=== PATIENT | female | born 1975 | race Caucasian/White ===

== ENCOUNTER 2017-10-29 10:58 | Emergency (ER) | payer OTHER, SELFPAY ==
[2017-10-29 10:59] VITALS: BP 154/69; PULSE 84; RESP 16; TEMP 36.3; O2SAT 98; BMI 25.0
--- NOTE | 2017-10-29 11:13 | ED.VISSUMM ---
- ER Visit Summary Date of Service: 10/29/17 Chief Complaint: Allergic reaction History of Present Illness: The patient is a 42 F presents to the emergency department multiple symptoms. Patient states that Sunday, she was walking out of a grocery store. She states they just recently sprayed pesticides. She states that her strong chlorine or odor. She states that since that time, she has had some shortness of breath, nausea, and cough. She states that he was in the area around her apartment and a lot of the trees lost her leaves. Over the past 2 days, she began have some abdominal cramping. She admits to some dysuria today. The patient has no history of prior anaphylaxis. She denies any history of lung disease. She denies any other chronic medical conditions and takes no daily medications. Physical Examination: Vital signs reviewed General: Well-nourished, well-developed Head: Normocephalic, atraumatic Eyes: Pupils equal and reactive, extraocular muscles intact Neck, supple, no lymphadenopathy Heart: Regular rate and rhythm Respiratory: No distress, clear bilaterally Abdomen: Soft, nontender, nondistended, no peritoneal signs Back: Nontender Extremities: Nontender, no edema, no cords Skin: Normal color no rash Neuro: Alert and oriented, no focal or lateralizing deficits Test Results: [] Emergency Department Course and Treatment: Clinically, I do for the patient symptoms are likely secondary to chemical exposure and. She had cough, shortness of breath, nausea. This has improved. She has begun to have some facial flushing. IV was established. Patient was given fluids and Solu-Medrol. Her labs are relatively unremarkable. She does have a mild leukopenia with an eosinophil predominance. I do feel this is likely because of allergic response. She is not hypoxic. She is not tachypneic. I do feel that a prednisone burst would be the best way to treat this. The patient was counseled on concerning symptoms and reasons to return. She will be discharged home. Treatment Plan: [] Disposition: Discharge Impression: 1. Chemical inhalation with bronchospasm-resolved This note was generated with [employer] software. It may contain incorrect words, spelling, and punctuation that were not noted in review of the chart prior to signing ED Disposition - Plan for ED Patient: Chief Complaint: General Illness Instructions: ED Inhalation Chemical Prescriptions: Prednisone 10 mg PO UD #33 tab Referrals: [facility] Doctor,Out of [NON-STAFF] -
[2017-10-29 11:37] LABS: Bacteria 0 SEEN /hpf (None Seen); Mucous, Urine 0 SEEN /hpf (<or=2+); Red Blood Cells-Urine 0 SEEN /hpf (0-5); White Blood Cells 0 SEEN /hpf (0-5)
[2017-10-29 11:41] LABS: Absolute Lymphocyte Count 1.28 X10^3/ul (0.83-4.51); Absolute Neutrophil Count 1.9 X10^3/uL (2.0-7.7); Basophil# 0.06 X10^3/uL; Basophil% 1.6 % (0-1); Eosinophils% 5.2 % (0-5); Hematocrit 38.6 % (37-47); Hemoglobin 13.2 g/dl (12.0-15.0); Lymphocyte # 1.28 X10^3/ul (4.0); Lymphocyte % 33.2 % (19-41); Mean Corp Hgb Conc 34.2 g/gl (32-36); Mean Corpuscular Hgb 30.8 pg (27.0-32.0); Mean Corpuscular Volume 90.2 fL (81-99); Mean Platelet Vol. 9.2 fl (6.2-12.0); Monocyte# 0.39 X10^3/uL; Monocyte% 10.1 % (0-10); Neutrophil # 1.92 X10^3/uL (2.7-7.7); Neutrophil % 49.9 % (47-70); POSITIVE COUNT NO; POSITIVE DIFFERENTIAL NO; POSITIVE MORPHOLOGY NO; Platelet Count 334 K/mm3 (150-450); RBC Distribution Width CV 11.5 % (11.6-14.6); RBC Distribution Width SD 36.7 fl (35.1-43.9); Red Blood Count 4.28 M/mm3 (4.2-5.4); White Blood Count 3.9 K/mm3 (4.4-11.0)
[2017-10-29 11:41] LABS: Color, Urine Yellow (Yellow); Glucose, Dipstick Normal (Normal); Ketone-Dipstick Negative (Negative); Leukocyte Esterase-Dipstick Negative /ul (Negative); Nitrite-Dipstick Negative (Negative); Occult Blood-Urine Negative /ul (Negative); Protein-Dipstick Negative (Negative); Urine Bilirubin Dipstick Negative (Negative); Urine Clarity Clear (Clear); Urine Urobilinogen Normal (Normal)
[2017-10-29] MEDS: 0.9% Normal Saline 1,000 ML 1000 ML IV (11:45)
[2017-10-29 11:48] LABS: Squamous Epithelial Cells - UA 0-5 SEEN /hpf (5-10)
[2017-10-29 11:52] LABS: AST(SGOT) 12 U/L (15-37); Alanine Aminotransfer ALT/SGPT 17 U/L (13-56); Albumin, Serum 3.9 g/dL (3.2-5.0); Alkaline Phosphatase 54 U/L (45-117); Anion Gap 7 (5-15); BUN 4 mg/dL (7-18); BUN/Creat Ratio 4.9 RATIO (10-20); Calcium,Total 9.2 mg/dL (8.5-10.1); Chloride 108 mmol/L (98-107); Creatinine, Serum 0.82 mg/dL (0.55-1.02); EST Glomerular Filtration Rate 82 mL/min (>60); Est Glom Filt Rate - Afr Amer 99 mL/min (>60); Estimated Creatinine Clearance 85.37 ml/min; Globulin 4.1 g/dL (2.2-4.2); Glucose 98 mg/dL (74-106); Potassium 3.8 mmol/L (3.5-5.1); Sodium Level 141 mmol/L (136-145)
[2017-10-29] MEDS: MethylPREDNISolone 125 MG/2 ML Vial IV (12:37)
== END 2017-10-29 13:21 | disposition home or self-care (01) ==
LOC: ED 11:49
PROVIDERS: Emergency Provider Emergency Medicine
DX: T60.8X1A Toxic effect of other pesticides, accidental (unintentional), initial encounter (principal); J68.0 Bronchitis and pneumonitis due to chemicals, gases, fumes and vapors; Y92.512 Supermarket, store or market as the place of occurrence of the external cause
CPT/HCPCS: 80053; 81001; 85025; 99284; J7030; A4216

== ENCOUNTER 2019-01-13 00:23 | Emergency (ER) | payer MEDICAID, SELFPAY ==
[2019-01-13 00:31] VITALS: BP 120/80; PULSE 94; RESP 14; TEMP 36.8; O2SAT 100; BMI 26.4
--- NOTE | 2019-01-13 00:32 | EKG12_ITS ---
Test Reason : DIZZYNESS Blood Pressure : / mmHG Vent. Rate : 083 BPM Atrial Rate : 083 BPM P-R Int : 148 ms QRS Dur : 098 ms QT Int : 388 ms P-R-T Axes : 075 078 051 degrees QTc Int : 455 ms Normal sinus rhythm Nonspecific ST abnormality Abnormal ECG Confirmed by VIOLETA BAILEY, RADHA ([id number]), assistant film editor AUREA BAUTISTA ([id number]) on 01/13/2019 3:01:34 PM Referred By: ELIECER Confirmed By:RADHA MCDANIEL MD
--- NOTE | 2019-01-13 00:41 | ED.DCSUM_ITS ---
History of Present Illness Chief Complaint: Dizziness Informant: Patient Narrative: Patient stated she woke up with vertigo just prior to arrival. She was sleeping and woke up try to go the bathroom and felt significant vertigo when she looks to the left. She felt nauseous. She did not vomit. She had to call the paramedics to bring her in for further evaluation. It is come down significantly per patient. She is never been diagnosed with vertigo in the past however she has had vertigo episodes in the past that lasts for short period of time. She is never needed treatment. She denies any history of intracranial pathology. She is not having frequent headaches. She felt fine before bedtime tonight. Current severity is mild. It was moderate to severe. She does not feel lightheaded like she is going to pass out. Past Medical History - Allergies and Home Meds Allergies/Adverse Reactions: Allergies -cillins Allergy (Uncoded 10/29/17 12:36) Rash all -cillins, have a bad reaction to them all Primary Care Physician: [facility] [Primary Care Provider] - Prior records reviewed: Yes Past Medical History: None Surgical History: - - Reviewed Lives: With Family Smoking Status: Unknown if ever smoked Alcohol: None Drugs: None Review of Systems General: Denies: Chills, Fever, Sweats Eyes: Denies: Visual changes - bilaterally, Diplopia ENT: Denies: Rhinorrhea, Sore throat Cardiovascular: Denies: Chest pain, Palpitations Respiratory: Denies: Dyspnea, Cough, Dyspnea on exertion Gastrointestinal: Reports: Nausea. Denies: Abdominal pain, Vomiting, Diarrhea, Melena, Hematochezia Genitourinary: Denies: Dysuria, Hematuria, Frequency Musculoskeletal: Denies: Back pain, Extremity Pain Skin: Denies: Rash, Wounds Neurological: Reports: - - See HPI. Denies: Headache, Weakness, Numbness Physical Exam Vital Signs/Narrative: Vital Signs Temp Pulse Resp BP Pulse Ox 01/13/19 00:31 98.2 F 94 14 120/80 100 General: Well nourished, Well developed, No Acute Distress Head: Normocephalic, Atraumatic Eyes: Perrl, EOMI, - - Positive lateral nystagmus bilateral to the left ENT: Moist mucous membranes, No rhinorrhea Neck: Supple, Nontender Cardiovascular: Regular rate, Regular rhythm, No murmurs Respiratory: No distress, CTA bilaterally, Chest nontender Abdomen: Soft, Nontender, Nondistended, Normal bowel sounds Back: Nontender, Normal Inspection Extremities: Nontender, No edema Skin: Normal color, No rash Neurological: Alert, Oriented x3, Cranial nerves II-XII grossly intact, Normal Strength, Normal Sensation, - - Patient has reproduction of her vertigo while moving her head to the left Psychological: Normal affect, Normal Mood Diagnostic/Tx/Re-eval - Medical Decision Making Been oral meclizine and Zofran. Upon reevaluation she feels significantly better. Vertigo is resolved. EKG was obtained upon arrival shows normal sinus rhythm with nonspecific abnormality. No acute ischemia or STEMI. At this time I feel the patient has positional benign vertigo. Will be given meclizine and Zofran for home. She felt better and ambulates to the bathroom without problem. I do not feel she needs imaging including CT head. We will follow-up as an outpatient. I do not feel she has a central cause. Given information on the Heather maneuver. ED Disposition - Plan for ED Patient: Disposition: Home or Assisted Living Diagnosis: Positional vertigo Instructions: Benign Positional Vertigo Prescriptions: Meclizine HCl [Antivert] 25 - 50 mg PO TID PRN PRN #20 tab PRN Reason: Vertigo Prescription Printed Ondansetron [Zofran Odt] 4 mg PO Q8H PRN PRN #10 tab PRN Reason: Nausea Prescription Printed [facility]errals: [facility] [Primary Care Provider] -
[2019-01-13] MEDS: Meclizine HCl 25 MG Tablet PO (00:43)
[2019-01-13 00:45] VITALS: BP 124/76; PULSE 82; RESP 16
[2019-01-13] MEDS: Ondansetron ODT 4 MG Tablet 8 MG PO ×2 (01:49→03:53)
[2019-01-13 02:08] LABS: Absolute Neutrophil Count 4.4 X10^3/uL (2.0-7.7); Basophil# 0.04 X10^3/uL; Basophil% 0.7 % (0-1); Eosinophil# 0.05 X10^3/uL; Eosinophils% 0.9 % (0-5); Hematocrit 35.7 % (37-47); Hemoglobin 12.4 g/dL (12.0-15.0); Lymphocyte % 14.2 % (19-41); Mean Corp Hgb Conc 34.7 g/dL (32-36); Mean Corpuscular Hgb 31.4 pg (27.0-32.0); Mean Corpuscular Volume 90.4 fL (81-99); Monocyte# 0.32 X10^3/uL; Monocyte% 5.7 % (0-10); NRBC Flagged by Analyzer 0 % (0-5); Neutrophil # 4.42 X10^3/uL (2.7-7.7); Neutrophil % 78.3 % (47-70); Platelet Count 280 K/mm3 (150-450); RBC Distribution Width CV 11.5 % (11.6-14.6); Red Blood Count 3.95 M/mm3 (4.2-5.4); White Blood Count 5.6 K/mm3 (4.4-11.0)
[2019-01-13 03:00] VITALS: BP 118/73; PULSE 93; RESP 19; O2SAT 98
[2019-01-13 03:01] LABS: Anion Gap 8 (5-15); BUN 7 mg/dL (7-18); BUN/Creat Ratio 9.4 RATIO (10-20); Calcium,Total 8.7 mg/dL (8.5-10.1); Chloride 110 mmol/L (98-107); Creatinine, Serum 0.75 mg/dL (0.55-1.02); EST Glomerular Filtration Rate 91 mL/min (>60); Est Glom Filt Rate - Afr Amer 110 mL/min (>60); Estimated Creatinine Clearance 92.41 ml/min; Glucose 117 mg/dL (74-106); Potassium 3.6 mmol/L (3.5-5.1); Sodium Level 140 mmol/L (136-145)
[2019-01-13 04:03] VITALS: BP 119/77; PULSE 92; RESP 16; O2SAT 97
== END 2019-01-13 04:45 | disposition home or self-care (01) ==
PROVIDERS: Emergency Provider Emergency Medicine
DX: H81.10 Benign paroxysmal vertigo, unspecified ear (principal)
CPT/HCPCS: 80048; 85025; 93005; 99284